=== PATIENT | male | born 1950 | race Caucasian/White ===

== ENCOUNTER 2016-09-06 09:08 | Emergency (ER) | payer MEDICARE ==
[2016-09-06 10:07] LABS: ABSOLUTE BASOPHILS # (AUTO) 0.1 10^3/uL (0.0-0.2); ABSOLUTE EOSINOPHILS # (AUTO) 0.3 10^3/uL (0.0-0.6); ABSOLUTE LYMPHOCYTES (AUTO) 2.5 10^3/uL (0.5-4.7); ABSOLUTE NEUT (AUTO) 8.4 10^3/uL (1.7-8.2); BASOPHILS % (AUTO) 0.6 % (0-2); EOSINOPHILS % (AUTO) 2.4 % (0-6); LYMPHOCYTES % (AUTO) 20.4 % (13-45); MEAN CORPUSCULAR HEMOGLOBIN 29.5 pg (27.0-33.4); MEAN CORPUSCULAR HGB CONC 33.3 g/dL (32.0-36.0); MEAN CORPUSCULAR VOLUME 89 fl (80-97); MONOCYTES % (AUTO) 8.5 % (3-13); RED BLOOD COUNT 5.42 10^6/uL (4.35-5.55); SEGMENTED NEUTROPHILS % (AUTO) 68.1 % (42-78); WHITE BLOOD COUNT 12.4 10^3/uL (4.0-10.5)
[2016-09-06 10:17] LABS: APPEARANCE,URINE SLIGHTLY-CLOUDY; BILIRUBIN,URINE NEGATIVE (NEGATIVE); GLUCOSE, URINE NEGATIVE (NEGATIVE); KETONES,URINE NEGATIVE (NEGATIVE); LEUKOCYTE ESTERASE,URINE NEGATIVE (NEGATIVE); NITRITE,URINE NEGATIVE (NEGATIVE); PROTEIN,URINE NEGATIVE (NEGATIVE); URINE SPECIFIC GRAVITY 1.005; UROBILINOGEN,URINE NEGATIVE mg/dL (<2.0)
[2016-09-06 10:28] LABS: ALANINE AMINOTRANSFERASE 65 U/L (21-72); ALBUMIN 4.4 g/dL (3.5-5.0); ALKALINE PHOSPHATASE 127 U/L (38-126); ANION GAP 16 (5-19); ASPARTATE AMINO TRANSFERASE 49 U/L (17-59); BILIRUBIN,DIRECT 0.3 mg/dL (0.0-0.4); BILIRUBIN,TOTAL 0.8 mg/dL (0.2-1.3); BLOOD UREA NITROGEN 14 mg/dL (7-20); CALCIUM 9.8 mg/dL (8.4-10.2); CARBON DIOXIDE 27 mmol/L (22-30); CHLORIDE 101 mmol/L (98-107); CREATININE RESULT 1.01 mg/dL (0.52-1.25); GLUCOSE 107 mg/dL (75-110); LIPASE 43.9 U/L (23-300); POTASSIUM 4.1 mmol/L (3.6-5.0); SODIUM 144.4 mmol/L (137-145); TOTAL PROTEIN 7.6 g/dL (6.3-8.2)
--- NOTE | 2016-09-06 10:39 | ER Document Report ---
ED GI/ - General Mode of Arrival: Ambulatory Information source: Patient TRAVEL OUTSIDE OF THE [place] IN LAST 30 DAYS: No - HPI Patient complains to provider of: Flank pain Onset: Other - 09/03/2016 Timing/Duration: Gradual, Worse Quality of pain: Sharp Location: Right flank Associated symptoms: Hematuria, Nausea, Vomiting <ZOILA HURD - Last Filed: 09/06/16 10:57> <MARY FRASER - Last Filed: 09/06/16 12:55> - General Chief Complaint: Flank Pain Stated Complaint: BLOOD IN URINE Notes: Patient is a 66-year-old male presenting to the emergency department concerned of right flank pain onset 09/03/2016. Patient admits to nausea and vomiting. Patient also has states that he has seen small amounts of blood in his urine. Patient has a history of kidney stones, the most recent being a year and a half ago when he had surgery to break the stone up. (ZOILA HURD) - Related Data Allergies/Adverse Reactions: No Known Allergies Allergy (Verified 11/16/15 08:06) Past Medical History - General Information source: Patient - Social History Smoking Status: Former Smoker Family History: Reviewed & Not Pertinent Patient has suicidal ideation: No Patient has homicidal ideation: No - Past Medical History Cardiac Medical History: Reports: Hx Heart Attack, Hx Hypercholesterolemia, Hx Hypertension Pulmonary Medical History: Reports: Hx COPD Renal/ Medical History: Denies: Hx Peritoneal Dialysis Musculoskeltal Medical History: Reports Hx Arthritis, Reports Hx Musculoskeletal Deformity - Chronic pain to bilateral knees bilateral hips bilateral ankles, Reports Hx Musculoskeletal Trauma Psychiatric Medical History: Denies: Hx Depression Traumatic Medical History: Reports: Hx Fractures - Bilateral knees, left ankle, bilateral wrist, back, right femur Past Surgical History: Reports: Hx Orthopedic Surgery - Bilateral hips, right knee, left ankle, right femur - Immunizations Hx Diphtheria, Pertussis, Tetanus Vaccination: - unk <ZOILA HURD - Last Filed: 09/06/16 10:57> Review of Systems - Review of Systems Constitutional: No symptoms reported EENT: No symptoms reported Cardiovascular: No symptoms reported Respiratory: No symptoms reported Gastrointestinal: See HPI, Nausea, Vomiting Genitourinary: See HPI, Flank pain - Right, Hematuria Male Genitourinary: No symptoms reported Musculoskeletal: No symptoms reported Skin: No symptoms reported Hematologic/Lymphatic: No symptoms reported Neurological/Psychological: No symptoms reported -: Yes All other systems reviewed and negative <ZOILA HURD - Last Filed: 09/06/16 10:57> Physical Exam - Back Back: Tender - Tenderness over lumbar muscles, CVA tenderness - R. CVA tenderness to palpation <VANNESSAZOILA - Last Filed: 09/06/16 10:57> Course - Laboratory Result Diagrams: 09/06/16 09:55 09/06/16 09:55 <VANNESSAZOILA - Last Filed: 09/06/16 10:57> - Laboratory Result Diagrams: 09/06/16 09:55 09/06/16 09:55 - Diagnostic Test Radiology reviewed: Image reviewed, Reports reviewed - CT scan of the abdomen and pelvis without contrast does not show renal calculi or ureteral calculi or hydronephrosis or hydroureter. There is incidental finding of a liver cyst. There is diverticulosis without diverticulitis. <MARY FRASER - Last Filed: 09/06/16 12:55> - Re-evaluation Re-evalutation: 09/06/16 12:48 Reevaluate after reviewing the negative urine and negative CT scan with the patient, palpating the right back muscles over and just below the kidney calls extreme tenderness to the patient showing in convincing him that this is all musculoskeletal pain today. (MARY FRASER) - Vital Signs Vital signs: Temp Pulse Resp BP Pulse Ox 97.4 F 106 H 18 151/85 H 97 09/06/16 09:35 09/06/16 09:35 09/06/16 09:35 09/06/16 09:35 09/06/16 09:35 - Laboratory Laboratory results interpreted by me: 09/06/16 09/06/16 09:55 09:55 WBC 12.4 H Absolute Neutrophils 8.4 H Alkaline Phosphatase 127 H Discharge <ZOILA HURD - Last Filed: 09/06/16 10:57> <MARY FRASER - Last Filed: 09/06/16 12:55> - Discharge Clinical Impression: Right flank pain, Musculoskeletal back pain Condition: Stable Disposition: HOME, SELF-CARE Additional Instructions: Back Muscle Strain: You have strained the right flank back muscles. This often occurs with strenuous exertion, or during an injury that suddenly stretches the muscle. The seriousness of a strain varies. Some strains heal within days, others cause problems for months. X-rays cannot show a muscle strain. X-rays are taken only if symptoms suggest that a fracture could be present. The usual treatment of a muscle strain is rest and ice packs. Sometimes, a sling, splint, or crutches may be necessary to rest the muscle. The muscle can be used again once pain subsides. Severe strains require a special exercise and stretching program to prevent permanent stiffness and disability. Your doctor will advise you if this will be necessary. Call the doctor immediately if pain or swelling becomes severe, or if numbness or discoloration develop. //////////////////////////////////////////////////////////////////////////////// //////////////////////////////////////////////////////////////////////////////// ///////////////// Add the muscle relaxer as prescribed to your regular medications. Rest. Use moist heat to the painful back muscles. Try to avoid activities that make the pain worse. Follow-up with your doctor if not improving. RETURN TO THE EMERGENCY ROOM IF ANY NEW OR WORSENING SYMPTOMS. Prescriptions: Cyclobenzaprine HCl [Flexeril 10 mg Tablet] 10 mg PO Q8 #15 tab Referrals: EFFIE CUNNINGHAM DO [Primary Care Provider] - Follow up as needed Bob Attestation: 09/06/16 12:55 I personally performed the services described in the documentation, reviewed and edited the documentation which was dictated to the scribe in my presence, and it accurately records my words and actions. (MARY FRASER) Scribe Documentation - Scribe Written by Bob:: Zoila Hurd 09/06/2016 [id number] acting as scribe for :: Marsha <ZOILA HURD - Last Filed: 09/06/16 10:57>
[2016-09-06 13:16] VITALS: BP 132/85
== END 2016-09-06 13:16 | disposition home or self-care (01) ==
LOC: ER 09:08
DX: R10.9 Unspecified abdominal pain (principal); M54.9 Dorsalgia, unspecified; R31.9 Hematuria, unspecified; Z87.891 Personal history of nicotine dependence
CPT/HCPCS: 36415; 76380; 80053; 81001; 82962; 83690; 85025; 99284

== ENCOUNTER → 2017-05-02 | Outpatient (CLI) | payer MEDICARE, MEDICAID ==
[~2017-05-02] MED LIST: ALBUTEROL SULFATE 0.083% NEB 2.5 MG/3 ML AMPUL NEB ONE
--- NOTE | 2017-05-03 10:29 | PULMONARY FUNCTION TEST ---
DATE OF SERVICE: 05/02/2017 THE VITAL CAPACITY IS SLIGHTLY DECREASED. THE EXPIRATORY FLOW RATES ARE SLIGHTLY DECREASED. THE FEV1/VC IS 67%, PREDICTED: 78% THE DLCO IS 32.8, 106% OF PREDICTED. IMPRESSION: THE INSPIRATORY LIMB OF THE F-V LOOP WAS POORLY PERFORMED. THE EXPIRATORY SPIROGRAM WAS ADEQUATE AND SHOWS A SLIGHT OBSTRUCTIVE DEFECT. CC: ASHLEIGH SAHNI MD > JOSHD
== END ==
LOC: RT 09:37
PROVIDERS: ATTEND Internal Medicine Critical Care Medicine
DX: R06.09 Other forms of dyspnea (principal)
CPT/HCPCS: 94729 ×2; 94060 ×2; A9270

== ENCOUNTER → 2018-05-15 | Outpatient (CLI) | payer MEDICARE ==
--- NOTE | 2018-05-15 13:53 | RADIOLOGY REPORT (SQ) ---
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 TECHNIQUE: CT scan of the chest performed using helical scanning technique with dynamic intravenous contrast injection. Images reviewed with lung, soft tissue and bone windows. Reconstructed coronal and sagittal MPR images reviewed. Additional 3 dimensional post-processing performed to develop Maximal Intensity Projection images (OR P). All images stored on PACS. All CT scanners at this facility use dose modulation, iterative reconstruction, and/or weight based d osing when appropriate to reduce radiation dose to as low as reasonably achievable (ALARA). [facility]: Dose Right [facility]: CareDose [facility]: Dose Right [facility]: Teradose 4D [facility]: 2Peer ([place]) CONTRAST TYPE AND DOSE: contrast/concentration: Isovue 350.00 mg/ml; Total Contrast Delivered: 50.0 ml; Total Saline Delivered: 80.0 ml RENAL FUNCTION: Creatinine 1.6 RADIATION DOSE: CT Rad equipment meets quality standard of care and radiation dose reduction techniq ues were employed. CTDIvol: 15.5 - 37.6 mGy. DLP: 580 mGy-cm. . LIMITATIONS: None. FINDINGS: LUNGS AND PLEURA: No masses, infiltrates, or pneumothorax. No pleural effusions or pleura l calcifications. AORTA AND GREAT VESSELS: No aneurysm or dissection. HEART: No pericardial effusion. PULMONARY ARTERIES: No emboli visualized in the main pulmonary arteries or the segmental branches. HILAR AND MEDIASTINAL STRUCTURES: Subcentimeter calcified mediastinal nodes. HARDWARE: None in the chest. UPPER ABDOMEN: No significant findings. Limited exam. THYROID AND OTHER SOFT TISSUES: No masses. No adenopathy. BONES: No acute or significant finding. 3D MIPS: Confirm above findings. OTHER: No other significant finding. IMPRESSION: No acute findings. COMMENT: Quality ID # [id number]: Final reports with documentation of one or more dose reduction techniques (e.g., Automated exposure control, adjustment of the mA and/or kV according to patient size, use of iterative reconstruction technique) TECHNICAL DOCUMENTATION: JOB ID: [id number] [employer]- All Rights Reserved Reading location - IP/workstation name: [email or web address]
== END ==
LOC: RAD 13:09
PROVIDERS: ATTEND Physician Assistant Medical
DX: I77.811 Abdominal aortic ectasia (principal)
CPT/HCPCS: 71275; 82565

== ENCOUNTER 2019-06-06 22:29 | Emergency (ER) | payer MEDICARE ==
--- NOTE | 2019-06-06 22:49 | ER Document Report ---
ED Medical Screen (RME) - General Chief Complaint: Penile Problem Stated Complaint: GENITAL PAIN/EXCESSIVE URINATION Time Seen by Provider: 06/06/19 22:44 Primary Care Provider: STELLA KIM PA-C [Primary Care Provider] - Follow up as needed Mode of Arrival: Ambulatory Information source: Patient Notes: 69-year-old male patient presented emergency department chief complaint of dysuria and fever. Patient reports this is been ongoing for quite some time. He does report a history of prostate enlargement and it sounds like he has had a TURP done in the past. He does not have very good follow-up with his primary care as he states that it takes several months to get an appointment. Patient calm, cooperative, no acute distress noted. Genitourinary exam deferred until patient is in the room. I have greeted and performed a rapid initial assessment of this patient. A comprehensive ED assessment and evaluation of the patient, analysis of test results and completion of the medical decision making process will be conducted by additional ED providers. I have specifically instructed the patient or family members with the patient to immediately return to any nursing staff should anything change in the patient's condition or with their chief complaint. TRAVEL OUTSIDE OF THE [place] IN LAST 30 DAYS: No - Related Data Allergies/Adverse Reactions: No Known Allergies Allergy (Verified 11/16/15 08:06) Past Medical History - Past Medical History Cardiac Medical History: Reports: Hx Heart Attack, Hx Hypercholesterolemia, Hx Hypertension Pulmonary Medical History: Reports: Hx COPD Renal/ Medical History: Denies: Hx Peritoneal Dialysis Musculoskeltal Medical History: Reports Hx Arthritis, Reports Hx Musculoskeletal Deformity - Chronic pain to bilateral knees bilateral hips bilateral ankles, Reports Hx Musculoskeletal Trauma Psychiatric Medical History: Denies: Hx Depression Traumatic Medical History: Reports: Hx Fractures - Bilateral knees, left ankle, bilateral wrist, back, right femur Past Surgical History: Reports: Hx Orthopedic Surgery - Bilateral hips, right knee, left ankle, right femur - Immunizations Hx Diphtheria, Pertussis, Tetanus Vaccination: - unk Physical Exam - Vital signs Vitals: Temp Pulse Resp BP Pulse Ox 98.0 F 72 18 179/82 H 100 06/06/19 22:34 06/06/19 22:34 06/06/19 22:34 06/06/19 22:34 06/06/19 22:34 Course - Vital Signs Vital signs: Temp Pulse Resp BP Pulse Ox 98.0 F 72 18 179/82 H 100 06/06/19 22:34 06/06/19 22:34 06/06/19 22:34 06/06/19 22:34 06/06/19 22:34 Doctor's Discharge - Discharge Referrals: STELLA KIM PA-C [Primary Care Provider] - Follow up as needed
[2019-06-07 00:02] LABS: ABSOLUTE BASOPHILS # (AUTO) 0.1 10^3/uL (0.0-0.2); ABSOLUTE EOSINOPHILS # (AUTO) 0.2 10^3/uL (0.0-0.6); ABSOLUTE LYMPHOCYTES (AUTO) 2.2 10^3/uL (0.5-4.7); ABSOLUTE MONOCYTES (AUTO) 0.8 10^3/uL (0.1-1.4); ABSOLUTE NEUT (AUTO) 6.8 10^3/uL (1.7-8.2); APPEARANCE,URINE CLEAR; BASOPHILS % (AUTO) 0.5 % (0-2); BILIRUBIN,URINE NEGATIVE (NEGATIVE); COLOR,URINE STRAW; EOSINOPHILS % (AUTO) 1.6 % (0-6); GLUCOSE, URINE NEGATIVE (NEGATIVE); HEMATOCRIT 40.8 % (37.9-51.0); HEMOGLOBIN 13.9 g/dL (13.5-17.0); KETONES,URINE NEGATIVE (NEGATIVE); LEUKOCYTE ESTERASE,URINE NEGATIVE (NEGATIVE); LYMPHOCYTES % (AUTO) 21.7 % (13-45); MEAN CORPUSCULAR HEMOGLOBIN 31.4 pg (27.0-33.4); MEAN CORPUSCULAR HGB CONC 34.1 g/dL (32.0-36.0); MEAN CORPUSCULAR VOLUME 92 fl (80-97); NITRITE,URINE NEGATIVE (NEGATIVE); PLATELET COUNT 221 10^3/uL (150-450); PROTEIN,URINE NEGATIVE (NEGATIVE); RED BLOOD COUNT 4.44 10^6/uL (4.35-5.55); RED CELL DISTRIBUTION WIDTH 12.9 % (11.5-14.0); SEGMENTED NEUTROPHILS % (AUTO) 68.2 % (42-78); TOTAL CELLS COUNTED % (AUTO) 100 %; URINE SPECIFIC GRAVITY 1.012; UROBILINOGEN,URINE NEGATIVE mg/dL (<2.0); WHITE BLOOD COUNT 9.9 10^3/uL (4.0-10.5)
[2019-06-07 00:11] LABS: ALBUMIN 3.7 g/dL (3.5-5.0); ALKALINE PHOSPHATASE 100 U/L (38-126); ANION GAP 8 (5-19); ASPARTATE AMINO TRANSFERASE 19 U/L (17-59); BILIRUBIN,DIRECT 0.2 mg/dL (0.0-0.4); BILIRUBIN,TOTAL 0.4 mg/dL (0.2-1.3); BLOOD UREA NITROGEN 16 mg/dL (7-20); CALCIUM 9.5 mg/dL (8.4-10.2); CARBON DIOXIDE 26 mmol/L (22-30); CHLORIDE 108 mmol/L (98-107); GLUCOSE 105 mg/dL (75-110); POTASSIUM 4.1 mmol/L (3.6-5.0); TOTAL PROTEIN 6.6 g/dL (6.3-8.2)
--- NOTE | 2019-06-07 04:19 | ER Document Report ---
ED General - General Chief Complaint: Urinary Problem Stated Complaint: GENITAL PAIN/EXCESSIVE URINATION Time Seen by Provider: 06/06/19 22:44 Primary Care Provider: STELLA KIM PA-C [NO LOCAL MD] - Follow up as needed Mode of Arrival: Ambulatory TRAVEL OUTSIDE OF THE [place] IN LAST 30 DAYS: No - HPI Notes: Mr. Davey is a 69-year-old male presenting with a chief complaint of difficulty voiding. Mild dysuria. He has been taking Benadryl recently for URI symptoms. He has a longstanding history of BPH and has had a TURP in the past. Denies fever, chills, nausea, vomiting or flank pain. Last visit with a urologist greater than 4 years ago. He is taking Flomax currently. - Related Data Allergies/Adverse Reactions: No Known Allergies Allergy (Verified 11/16/15 08:06) Home Medications: thyroid med, flomax, prostate med, bp med Past Medical History - General Information source: Patient - Social History Smoking Status: Never Smoker Family History: Reviewed & Not Pertinent Patient has suicidal ideation: No Patient has homicidal ideation: No - Past Medical History Cardiac Medical History: Reports: Hx Heart Attack, Hx Hypercholesterolemia, Hx Hypertension Pulmonary Medical History: Reports: Hx COPD Renal/ Medical History: Reports: Hx Benign Prostatic Hyperplasia. Denies: Hx Peritoneal Dialysis Musculoskeletal Medical History: Reports Hx Arthritis, Reports Hx Muscu loskeletal Deformity - Chronic pain to bilateral knees bilateral hips bilateral ankles, Reports Hx Musculoskeletal Trauma Psychiatric Medical History: Denies: Hx Depression Traumatic Medical History: Reports: Hx Fractures - Bilateral knees, left ankle, bilateral wrist, back, right femur Past Surgical History: Reports: Hx Orthopedic Surgery - Bilateral hips, right knee, left ankle, right femur, Other - TURP - Immunizations Hx Diphtheria, Pertussis, Tetanus Vaccination: - unk Review of Systems - Review of Systems Notes: Constitutional: Negative for fever. HENT: Negative for sore throat. Eyes: Negative for visual changes. Cardiovascular: Negative for chest pain. Respiratory: Negative for shortness of breath. Gastrointestinal: Negative for abdominal pain, vomiting or diarrhea. Genitourinary: As per HPI. Musculoskeletal: Negative for back pain. Skin: Negative for rash. Neurological: Negative for headaches, weakness or numbness. 10 point ROS negative except as marked above and in HPI. Physical Exam - Vital signs Vitals: Temp Pulse Resp BP Pulse Ox 98.0 F 72 18 179/82 H 100 06/06/19 22:34 06/06/19 22:34 06/06/19 22:34 06/06/19 22:34 06/06/19 22:34 - Notes Notes: GENERAL: Well-developed well-nourished appearing in mild discomfort. SKIN: Good turgor no rashes. HEAD: Normocephalic atraumatic. EYES: PERRLA. EOMI. Conjunctivae and sclerae clear. EARS: CANALS AND TMS CLEAR. NOSE: CLEAR. MOUTH: Moist mucosa. Good dentition. No stridor or edema. No drooling. NECK: Supple. No masses or thyromegaly. No adenopathy. Carotids 2+ without bruits. No JVD. BACK: Symmetrical without tenderness. CHEST: Respirations unlabored. Breath sounds clear and symmetrical. HEART: Regular rhythm. No murmur gallop or rub. ABDOMEN: Mild suprapubic tenderness. Soft without masses, organomegaly or rebound. Bowel sounds normally active. No bruits. GENITALIA: Normal circumcised male. EXTREMITIES: No edema. No calf tenderness. Cap refill less than 1.5 seconds. Dorsalis pedis and posterior tibial pulses 3+ and symmetrical. NEUROLOGICAL: GCS 15. Alert and oriented x3. Normal gait. Fluent speech. Cranial nerves II through XII intact. Sensorimotor and cerebellar normal. Normal tone. PSYCHIATRIC: Anxious. Course - Re-evaluation Re-evalutation: 06/07/19 04:18 Postvoid residual by bladder scan was about [address] a Genao catheter for the patient and advised him to abstain from use of antihistamine medicines. Anticipate outpatient urology referral. 06/07/19 06:19 We have not able to pass Genao catheter on this gentleman. He is able to void and has only relatively small residual. CT noncontrast abdomen pelvis was obtained and shows no obstructing stones. Poor visualization of the bladder due to metallic scatter artifact from bilateral hip replacements. This man appears very stable for outpatient follow-up with urology. I will place him on Pyridium and Levaquin and asked him to increase oral fluids and follow-up with urology as soon as possible. - Vital Signs Vital signs: Temp Pulse Resp BP Pulse Ox 98.1 F 63 17 135/79 H 98 06/07/19 06:17 06/07/19 06:17 06/07/19 06:17 06/07/19 06:17 06/07/19 06:17 - Laboratory Result Diagrams: 06/06/19 23:15 06/06/19 23:15 Laboratory results interpreted by me: 06/06/19 06/06/19 23:15 23:15 Chloride 108 H Urine Blood SMALL H Discharge - Discharge Clinical Impression: Dysuria BPH (benign prostatic hyperplasia) Qualifiers: Lower urinary tract symptom presence: symptoms present Lower urinary tract symptom detail: unspecified Qualified Code(s): N40.1 - Benign prostatic hyperplasia with lower urinary tract symptoms Condition: Stable Disposition: HOME, SELF-CARE Additional Instructions: Avoid [id number] decongestant and sleep medications which may impair your bladder emptying. Increase oral fluids. Take prescribed medications as directed. Return here as needed for new or worsening symptoms: Pain that is worsening or unimproved Uncontrolled vomiting High fever or shaking chills Overall worsening Follow-up with referral urologist as soon as possible. Prescriptions: Levofloxacin [Levaquin 750 mg Tablet] 750 mg PO DAILY #10 tablet Phenazopyridine HCl [Pyridium 200 mg Tablet] 200 mg PO TID 5 Days #15 tablet Referrals: STELLA KIM PA-C [NO LOCAL MD] - Follow up as needed
--- NOTE | 2019-06-07 05:59 | RADIOLOGY REPORT (SQ) ---
EXAM DESCRIPTION: CT ABDOMEN PELVIS WITHOUT IV CONTRAST COMPLETED DATE/TME: 06/07/2019 04:41 CLINICAL HISTORY: 69 years Male, urinary difficulty, milky discharge from penis, has pressure on bladder Comparison: 09/06/16, 05/15/18 Technique: No contrast. Coronal and sagittal reformat. This exam was performed according to our departmental dose-optimization program, which includes automated exposure control, adjustment of the mA and/or kV according to patient size and/or use of iterative reconstruction technique.[facility]: Dose Right [facility]: CareDose [facility]: Dose Right [facility]: Teradose 4D [facility]: [employer] LIMITATIONS: Hip hardware susceptibility artifact. Findings: Likely benign, low-attenuation hepatic lesion(s) measure 4.5 cm not definitively characterized without suspicious interval change. Bilateral total hip arthroplasty. Moderate diffuse idiopathic skeletal hyperostosis. Bilateral perinephric fat stranding, nonspecific. Moderate fat replacement of the pancreas. Colonic diverticulosis. Small bilateral inguinal fat only hernia. Urinary bladder partially obscured due to hardware artifact. Atherosclerotic vascular disease. No ascites. No pneumoperitoneum. Appendectomy. No gross evidence of gallbladder inflammation, hepatobiliary obstruction, or portal vein defect. No bowel obstruction. No hydronephrosis or hydroureter. No renal/ureteral stone. No evidence of abdominal aortic aneurysm. No gross evidence of thecal sac/cord or nerve root compression. Unenhanced lower thorax, abdominopelvic structures, and musculoskeleton appear otherwise grossly unremarkable. Impression: No acute findings. Limitation.Urinary bladder partially obscured due to hardware artifact.
[2019-06-07 06:17] VITALS: BP 135/79
[2019-06-07] MEDS ORDERED: LEVOFLOXACIN 750 MG TABLET PO ONE (06:18)
[2019-06-07] MEDS ORDERED: PHENAZOPYRIDINE HCL 200 MG TABLET PO ONE (06:18)
== END 2019-06-07 06:34 | disposition home or self-care (01) ==
LOC: ER 22:29
DX: R30.0 Dysuria (principal); N40.1 Benign prostatic hyperplasia with lower urinary tract symptoms; E78.00 Pure hypercholesterolemia, unspecified; I10 Essential (primary) hypertension; J44.9 Chronic obstructive pulmonary disease, unspecified; I25.2 Old myocardial infarction
CPT/HCPCS: 99284; 36415; 85025; 80053; 81001; 74176; C1758; A9270 ×2; J3490

== ENCOUNTER → 2020-02-08 | Outpatient (CLI) | payer MEDICARE ==
--- NOTE | 2020-02-08 18:20 | RADIOLOGY REPORT (SQ) ---
EXAM DESCRIPTION: CHEST 2 VIEWS IMAGES COMPLETED DATE/TIME: 02/08/2020 12:11 pm REASON FOR STUDY: CHEST PAIN COMPARISON: 2016 TECHNIQUE: Frontal and lateral radiographic views of the chest acquired. NUMBER OF VIEWS: Two view. LIMITATIONS: None. FINDINGS: LUNGS AND PLEURA: No opacities, masses or pneumothorax. No pleural effusion. MEDIASTINUM AND HILAR STRUCTURES: No masses or contour abnormalities. HEART AND VASCULAR STRUCTURES: Heart normal size. No evidence for failure. BONES: No acute findings. HARDWARE: None in the chest. OTHER: No other significant finding. IMPRESSION: NO SIGNIFICANT RADIOGRAPHIC FINDING IN THE CHEST. TECHNICAL DOCUMENTATION: JOB ID: [id number] [employer]- All Rights Reserved Reading location - IP/workstation name: [email or web address]
== END ==
LOC: RAD 11:58
PROVIDERS: ATTEND Family Medicine
DX: R07.9 Chest pain, unspecified (principal)
CPT/HCPCS: 71046